=== PATIENT | female | born 1935 | race Two or more races ===

== ENCOUNTER 2023-07-11 18:13 | Inpatient (IN) | payer OTHER ==
[~2023-07-11] VITALS: Ht 167.6 cm; Wt 45.4 kg
[~2023-07-11 18:13] MED LIST: EVISTA60 MG PO; LIBRAX CAPSULE1 CA1 PO
[2023-07-11 19:00] LABS: HEMATOCRIT 45.4 % (36.0-45.00); HEMOGLOBIN 14.8 g/dL (12.0-15.00); MEAN CORPUSCULAR HEMOGLOBIN 31.2 pg (27.00-32.0); MEAN CORPUSCULAR HGB CONC 32.5 g/dl (32.0-36.0); PLATELET COUNT 228 K/uL (150-450); RED BLOOD COUNT 4.72 M/uL (4.00-6.00); RED CELL DISTRIBUTION WIDTH 15.1 % (11.5-14.5)
[2023-07-11 19:41] LABS: CALCIUM 9.7 mg/dL (8.5-10.1); CREATININE SERUM 1.35 mg/dL (0.55-1.02); GFR 37.09; POTASSIUM 4.18 mEq/L (3.5-5.1)
[2023-07-11] MEDS ORDERED: ADULT LOW DOSE81 M1 (19:41)
--- NOTE | 2023-07-11 19:41 | NUR ---
PTE ALERTA Y ORIENTADA X 3 ESFERAS AL MOMENTO RECIBIDA EN AMBULANCIA RECIBIDA POR TRAUMA,REFIERE SE TALIA EN EL HOGAR Y TENER DOLOR EN CADERA LT.
[2023-07-11 19:43] LABS: INR 1.09; PARTIAL THROMBOPLASTIN TIME 33.7 SECONDS (22.0-34.0); PROTHROMBIN TIME 11.4 SECONDS (9.0-11.5)
--- NOTE | 2023-07-11 19:45 | NUR ---
SE ORIENTA PTE Y FAMILIAR SOBRE TX MEDICO EL CUAL REFIERE ENTENDER.SE LE EXTRAEN MUESTRAS BAJO MEDIDAS ASEPTICAS.SE CANALIZA Y SE COLOCAN FLUIDOS DE MANTENIMIENTO.SE LE REALIZA EKG,SE INSERTA GOLDMAN.
[2023-07-11 22:31] LABS: ABG PH 7.416 (7.35-7.45); ABG pCO2 34.3 mmHg (35-45)
[2023-07-11 22:32] LABS: ABG PO2 58.1 mmHg (80-100); BASE EXCESS -2.2 mmol/l; BICARBONATE 21.6 mmol/l (23-25)
[2023-07-11 22:34] LABS: SaO2 90.1 %
[2023-07-13 12:04] LABS: ABG PH 7.407 (7.35-7.45); ABG pCO2 37.7 mmHg (35-45); BASE EXCESS -1.1 mmol/l; BICARBONATE 23.2 mmol/l (23-25); SaO2 87.2 %
[2023-07-15 08:08] LABS: HEMOGLOBIN 10.6 g/dL (12.0-15.00); MEAN CELL VOLUME 94.8 fL (80.00-100.00); MEAN CORPUSCULAR HEMOGLOBIN 32.4 pg (27.00-32.0); MEAN CORPUSCULAR HGB CONC 34.2 g/dl (32.0-36.0); PLATELET COUNT 157 K/uL (150-450); RED BLOOD COUNT 3.27 M/uL (4.00-6.00); RED CELL DISTRIBUTION WIDTH 15.1 % (11.5-14.5)
[2023-07-16 08:40] LABS: HEMATOCRIT 30.2 % (36.0-45.00); HEMOGLOBIN 9.9 g/dL (12.0-15.00); MEAN CELL VOLUME 95.4 fL (80.00-100.00); MEAN CORPUSCULAR HEMOGLOBIN 31.4 pg (27.00-32.0); MEAN CORPUSCULAR HGB CONC 32.9 g/dl (32.0-36.0); PLATELET COUNT 164 K/uL (150-450); RED BLOOD COUNT 3.16 M/uL (4.00-6.00); RED CELL DISTRIBUTION WIDTH 14.7 % (11.5-14.5)
[2023-07-18 20:03] LABS: ABG PH 7.439 (7.35-7.45); ABG pCO2 35.3 mmHg (35-45); BASE EXCESS -0.2 mmol/l; BICARBONATE 23.4 mmol/l (23-25); SaO2 97.2 %
[2023-07-19 20:09] LABS: ABG PH 7.456 (7.35-7.45); ABG PO2 66.1 mmHg (80-100); ABG pCO2 33.6 mmHg (35-45); BASE EXCESS 0 mmol/l; BICARBONATE 23.1 mmol/l (23-25); SaO2 93.9 %
[2023-07-20 08:25] LABS: ALBUMIN 2.4 gm/dL (3.4-5.0); BILIRUBIN TOTAL 0.53 mg/dL (0.3-1.2); CALCIUM 8.3 mg/dL (8.5-10.1); CREATININE SERUM 0.6 mg/dL (0.55-1.02); GFR 94.56; GLOBULINA 2.4 G/DL (2.4-3.5); POTASSIUM 3.95 mEq/L (3.5-5.1); TOTAL PROTEIN 4.8 gm/dL (6.4-8.2)
== END 2023-07-20 11:25 | DRG 481 ==
LOC: ER 18:13 → SURH 20:13
PROVIDERS: Emergency Medicine; General Practice; Internal Medicine; Orthopaedic Surgery; ADMIT Internal Medicine; ATTEND Internal Medicine
PROC: B24BZZZ Ultrasonography of Heart with Aorta (ICD-10-PCS; 2023-07-11)
PROC: BW28ZZZ Computerized Tomography (CT Scan) of Head (ICD-10-PCS; 2023-07-12)
PROC: 02HV33Z Insertion of Infusion Device into Superior Vena Cava, Percutaneous Approach (ICD-10-PCS; 2023-07-12)
PROC: 4A12X4Z Monitoring of Cardiac Electrical Activity, External Approach (ICD-10-PCS; 2023-07-12)
PROC: 0QS704Z Reposition Left Upper Femur with Internal Fixation Device, Open Approach (ICD-10-PCS; principal; 2023-07-14 09:00)
DX: S72.142A Displaced intertrochanteric fracture of left femur, initial encounter for closed fracture (principal); M80.052A Age-related osteoporosis with current pathological fracture, left femur, initial encounter for fracture; W19.XXXA Unspecified fall, initial encounter; J44.9 Chronic obstructive pulmonary disease, unspecified; I10 Essential (primary) hypertension; E78.5 Hyperlipidemia, unspecified; I48.0 Paroxysmal atrial fibrillation; Z20.822 Contact with and (suspected) exposure to COVID-19